=== PATIENT | male | born 1960 | race Caucasian/White ===

== ENCOUNTER 2017-02-12 14:30 | Inpatient (IN) ==
[2017-02-12] MEDS ORDERED: NS 1,000 ML IV ONE (15:03)
[2017-02-12] MEDS ORDERED: NS 1,000 ML ONE (16:12)
[2017-02-12] MEDS: ROCEPHIN 1 GM/NS 1 GM/50 ML IVPB IV SCH (16:26)
[2017-02-12 16:51] LABS: INR 2.97 (0.86-1.15); PROTIME 30.8 Seconds (12.1-15.5)
[2017-02-12 17:06] LABS: ALBUMIN 3.1 g/dL (3.5-5.0); CALCIUM 8.9 mg/dL (8.8-10.2); POTASSIUM 4.4 mmol/L (3.5-5.1); TOTAL BILIRUBIN 2.1 mg/dL (0.20-1.00); TOTAL PROTEIN 5.5 g/dL (6.3-8.3)
--- NOTE | 2017-02-12 17:50 | HISTORY AND PHYSICAL ---
CHIEF COMPLAINT: Extreme weakness and multiple falls recently. HISTORY OF PRESENT ILLNESS: This is one of several [facility] admissions for this 56-year- old, white man with severe cardiomyopathy who has had progressive weakness over the past few days and presented to the office today for evaluation. Blood pressure was low at 80/50. Heart rate was 80 with paced rhythm. He was seen a couple days ago and EKG revealed no acute ST-T changes, also paced rhythm with rate of 80. He has called almost daily with weakness. He has had moderate shortness of breath. O2 saturation in the office was 95%. He is admitted for further evaluation and treatment. PAST MEDICAL HISTORY: His last admission was 12/11/2016 through 12/14/2016 with final diagnoses cardiomyopathy, ischemic, pacemaker, hypertension, left renal mass, chronic back pain, dehydration, and altered mental status. CT scan of his head revealed old strokes, but no acute lesions. PRESENT MEDICATIONS: Allopurinol 300 mg 1 daily, Linzess 145 mg daily, oxycodone 5/325 one q.6 hours p.r.n. pain, Seroquel 50 mg at bedtime p.r.n. sleep, Valtrex 500 mg b.i.d., and warfarin 4 mg at bedtime. ALLERGIES: Dilaudid. REVIEW OF SYSTEMS: Significant for cardiomyopathy with ejection fraction of about 20%. He has been evaluated by cardiologists in [place] who have recommended a heart transplant in the past. He has a left renal mass, which may be renal cell carcinoma. He is currently being followed by Dr. Lezama, urologist. His weight has been stable for the past few months. FAMILY HISTORY: Significant for hypertension and heart disease. SOCIAL HISTORY: He lives alone and has a son who lives in town who checks on him frequently. He denies recent smoking or alcohol usage. He states that he has been taking his medications correctly. PHYSICAL EXAMINATION: VITAL SIGNS: Temperature 98.2 degrees heart rate 80, respirations 14, blood pressure 80/50. GENERAL: Patient is a well-developed, well-nourished, weak white man with general malaise. He has contusions and abrasions over his forehead and scalp, also punctate vasculitis-type rash of his arms and legs. HEENT: Pupils equal, round, and reactive to light. Tympanic membranes without inflammation. Pharynx benign with no erythema or exudate. NECK: Supple with no mass or lymphadenopathy. HEART: Regular in rate and rhythm with no murmur, rub or gallop. LUNGS: Clear with no rales or rhonchi. ABDOMEN: Soft with no mass, tenderness, or organomegaly. EXTREMITIES: No cyanosis, clubbing, or edema. RECTAL AND GENITALIA: Deferred. IMPRESSION: Extreme weakness, hypotension, frequent falls due to unstable gait and hypotension, severe cardiomyopathy, left renal mass. PLAN: Admit for further evaluation and hydration. cc: Saeed Munoz MD
--- NOTE | 2017-02-12 18:24 | Diag Imaging Result Document ---
PROCEDURE NAME: CHEST-2 VIEWS - 02/12/2017 CHEST, 2 VIEWS: COMPARISON: 12/12/2016. FINDINGS: Stable pacemaker. Stable severe cardiomegaly. There is a worsening small to moderate left basilar pleural effusion. Stable ill-defined infiltrates in the lung bases as well. The suggesting mild edema. IMPRESSION: Worsening from prior. Cardiomegaly, pulmonary edema, small pleural effusion.
[2017-02-12] MEDS: NS 1,000 ML IV SCH (18:49)
[2017-02-12] MEDS: NITROGLYCERIN TOP SCH (18:50)
[2017-02-12] MEDS: REMERON PO SCH (20:31)
[2017-02-12] MEDS: VALTREX PO SCH (20:31)
[2017-02-12] MEDS ORDERED: SEROQUEL PO SCH (21:00)
[2017-02-12] MEDS ORDERED: COUMADIN PO SCH (21:00)
--- NOTE | 2017-02-12 21:06 | Diag Imaging Result Document ---
PROCEDURE NAME: HEAD W/O CONTRAST - 02/12/2017 CT OF THE HEAD: A CT dose reduction protocol was used. COMPARISON: 12/22/2016. FINDINGS: There are numerous stable bilateral old cerebral infarctions. There is also stable periventricular white matter chronic microvascular disease. No intracranial mass or hemorrhage. The skull is intact. The sinuses, mastoids, and middle ears are clear. IMPRESSION: Bilateral old cerebral infarctions. No change from prior. MTDD
[2017-02-12] MEDS: PERCOCET-5 PO PRN (22:38)
[2017-02-13] MEDS: NITROGLYCERIN TOP SCH ×4 (00:05→17:40)
[2017-02-13] MEDS: NS 1,000 ML IV SCH ×2 (04:51→17:40)
[2017-02-13] MEDS: LINZESS PO SCH (06:04)
[2017-02-13 07:39] LABS: INR 4.32 (0.86-1.15); PROTIME 40.9 Seconds (12.1-15.5)
[2017-02-13 07:40] LABS: BASO% 0.3 % (0.0-0.8); EOS# 0.03 X1000 (0.0-0.7); EOS% 0.3 % (0.0-10.0); HEMATOCRIT 44.8 % (42.0-52.0); HEMOGLOBIN 14.9 g/dL (14.0-18.0); IMM GRAN# 0.01 X1000 (0.0-0.04); IMM GRAN% 0.1 % (0.0-0.5); LYMPH# 2.08 X1000 (1.2-3.4); MANUAL DIFF NEEDED? YES; MCH 30.9 PG (27-31); MCHC 33.3 g/dL (33-37); MCV 92.9 FL (81-99); MONO# 0.61 X1000 (0.11-0.59); MONO% 6.7 % (1.7-9.3); MPV 10.9 FL (7.4-10.4); NEUT% 69.6 % (42.2-75.2); PLT 171 X1000 (130-400); RBC 4.82 XMIL (4.7-6.1)
[2017-02-13 07:46] LABS: LYMPHS 20 % (21-51); MONO 5 % (1-9)
[2017-02-13] MEDS: VALTREX PO SCH ×2 (08:38→20:51)
[2017-02-13] MEDS: PERCOCET-5 PO PRN ×3 (08:39→20:51)
[2017-02-13] MEDS: ZYLOPRIM PO SCH (08:39)
[2017-02-13] MEDS: LASIX IV SCH ×2 (10:34→20:53)
--- NOTE | 2017-02-13 11:51 | PROGRESS NOTE ---
DATE: 02/13/2017 PRIMARY CARE PHYSICIAN: Dr. Saeed Munoz SUBJECTIVE: Overnight, the patient responded well to the increased fluid resuscitation. The patient states that he is having worsening insomnia and worsening sacral pain, status post a remote fracture to the coccyx. OBJECTIVE: Vital signs are stable. The patient is with oxygen in place, O2 saturation within normal limits. General: An ill-appearing middle-aged male, multiple abrasions and seborrheic keratoses over the head, in mild to moderate pain. HEENT: Clear OP. No erythema. Nares are patent. Pupils are equal, round and reactive to light and accommodation. Extraocular movements were intact. Neck: Supple. Chest: Clear to auscultation anteriorly with telemetry in place. Cardiovascular: Regular rate. There is a 4/6 systolic ejection murmur noted, consistent with artificial heart valve. Abdomen: Protuberant. Bowel sounds are scant. Lower extremities with no cyanosis or clubbing. There is trace lower extremity edema bilaterally. Skin: Poor turgor. Lots of skin breakdown and thinning skin. DIAGNOSTIC DATA: The patient's labs this a.m. show an INR greater than 4 and a BNP greater than 10,000. ASSESSMENT: The patient is a 56-year-old unfortunate male with: 1. Cardiomyopathy. 2. Hypotension. 3. Volume depletion. 4. Supratherapeutic INR. 5. Chronic pain. PLAN: We will continue fluid resuscitation with 1 dose of Lasix to ensure that there is no further volume overload. We will add Decadron p.o. for the chronic pain that is not being remitted with Percocet. We will evaluate with a.m. labs and switch from Seroquel over to temazepam in an effort to improve sleep and also decrease any risk of long QT syndrome. The patient will be followed daily, with discharge upon stabilization. cc: MD Saeed Keene MD
[2017-02-13] MEDS: ROCEPHIN 1 GM/NS 1 GM/50 ML IVPB IV SCH (15:59)
[2017-02-13] MEDS: RESTORIL PO SCH (20:52)
[2017-02-13] MEDS: REMERON PO SCH (20:53)
[2017-02-14] MEDS: NS 1,000 ML IV SCH ×2 (02:17→02:20)
[2017-02-14] MEDS: NITROGLYCERIN TOP SCH ×4 (02:17→18:07)
[2017-02-14] MEDS: LINZESS PO SCH (06:08)
[2017-02-14 06:12] LABS: MANUAL DIFF NEEDED? NO
[2017-02-14 06:35] LABS: BASO% 0.2 % (0.0-0.8); EOS# 0.02 X1000 (0.0-0.7); EOS% 0.2 % (0.0-10.0); HEMATOCRIT 45.9 % (42.0-52.0); HEMOGLOBIN 15.5 g/dL (14.0-18.0); IMM GRAN# 0.02 X1000 (0.0-0.04); IMM GRAN% 0.2 % (0.0-0.5); LYMPH# 2.44 X1000 (1.2-3.4); MCH 31.3 PG (27-31); MCHC 33.8 g/dL (33-37); MCV 92.5 FL (81-99); MONO# 0.59 X1000 (0.11-0.59); MONO% 6.5 % (1.7-9.3); MPV 10.8 FL (7.4-10.4); NEUT% 65.9 % (42.2-75.2); PLT 202 X1000 (130-400); RBC 4.96 XMIL (4.7-6.1)
[2017-02-14 07:03] LABS: ALBUMIN 3.1 g/dL (3.5-5.0); CALCIUM 8.9 mg/dL (8.8-10.2); POTASSIUM 5.6 mmol/L (3.5-5.1); TOTAL BILIRUBIN 1.9 mg/dL (0.20-1.00); TOTAL PROTEIN 5.6 g/dL (6.3-8.3)
[2017-02-14 07:17] LABS: PROTIME 56.2 Seconds (12.1-15.5)
[2017-02-14 07:21] LABS: INR 6.57 (0.86-1.15)
[2017-02-14] MEDS ORDERED: DECADRON PO SCH (09:00)
[2017-02-14] MEDS: VALTREX PO SCH ×2 (09:11→22:29)
[2017-02-14] MEDS: ZYLOPRIM PO SCH (09:11)
[2017-02-14] MEDS: LASIX IV SCH ×2 (09:11→22:29)
[2017-02-14] MEDS ORDERED: VITAMIN K IV ONE (10:43)
[2017-02-14] MEDS ORDERED: NS IV ONE (10:43)
[2017-02-14] MEDS ORDERED: ALBUMIN 25% IV ONE (10:50)
[2017-02-14] MEDS ORDERED: LASIX IV ONE (11:00)
--- NOTE | 2017-02-14 11:24 | PROGRESS NOTE ---
DATE: 02/14/2017 PRIMARY CARE PHYSICIAN: Dr. Saeed Munoz. SUBJECTIVE: Patient with some minor complaints of being awakened overnight. Request made for nursing to decrease the frequency with which they are interacting with the patient to allow for quality sleep. OBJECTIVE: Vital signs: Temperature 97.5 degrees, pulse 83, blood pressure 145/94, O2 saturation 96% on room air. General: Physical exam shows an ill-appearing male, age appearing greater than stated, in no acute distress. Multiple ecchymosis and bruising over the right frontal skull that are well healing. Multiple seborrheic keratosis over the head. HEENT: Shows clear OP. No erythema. Pupils equal, round, react to light and accommodation. Extraocular movements are intact. Neck: Supple. Chest: Clear to auscultation anteriorly. There is a 4/6 systolic ejection murmur noted. Extremities: Lower extremities show no cyanosis, clubbing. Trace lower extremity edema bilaterally. Skin: Poor turgor. Otherwise within normal limits. Warm and dry. Neurologic: Cranial nerves 2 through 12 grossly intact. LABS: Show WBC stable at 9.03 with a hemoglobin and hematocrit of 15 and 45, MCV of 92, platelets up from 171,000 to 202,000. PT/INR continues to increase from 4.32 to 6.57 without Coumadin or anticoagulation. Sodium increasing from 130 to 132 but potassium is 5.6, anion gap of 15, BUN 29, creatinine 1.8 up from 1.3, glucose 106-129. Total bilirubin is continuing to decrease. BNP up almost doubling from 10,000 to 20,000. Total protein 5.6 with albumin 3.1. TSH 5.9 with a free T4 of 1.10 and digoxin level normal. No imaging performed yesterday. ASSESSMENT: This is a 56-year-old, unfortunate male with: 1. Cardiomyopathy. 2. Hypertension. 3. Supratherapeutic INR. 4. Volume depletion intravascularly with congestive heart failure. 5. Chronic pain. PLAN: We are going to increase the Lasix. Switch the fluids from normal saline to Clinimix with 1 dose of albumin to assist with the protein calorie malnutrition. Continue to monitor. We decreased the Seroquel. Will discontinue the steroid dose. Decadron for the chronic pain. Continue the temazepam at night. The patient will get 1 dose of vitamin K to see if there are any changes. We request that further workup regarding the possibility of underlying malignancy be evaluated. cc: MD Saeed Keene MD
[2017-02-14] MEDS ORDERED: FLEET ENEMA PR ONE (12:05)
[2017-02-14] MEDS: PERCOCET-5 PO PRN ×2 (12:16→18:07)
[2017-02-14] MEDS: CLINIMIX E 4.25%-5% SOLUTION 1,000 ML IV SCH (14:00)
--- NOTE | 2017-02-14 14:50 | Diag Imaging Result Document ---
PROCEDURE NAME: ABDOMEN FLAT/UPRIGHT - 02/14/2017 ABDOMEN 2 VIEWS: COMPARISON: 01/16/2016. FINDINGS: Stable cholecystectomy clips. No bowel obstruction or free air. There is a left basilar pleural effusion. IMPRESSION: Left basilar pleural effusion. No acute disease in the abdomen.
[2017-02-14] MEDS: ROCEPHIN 1 GM/NS 1 GM/50 ML IVPB IV SCH (19:13)
[2017-02-14] MEDS: RESTORIL PO SCH (22:28)
[2017-02-14] MEDS: REMERON PO SCH (22:29)
[2017-02-15] MEDS: PERCOCET-5 PO PRN ×3 (00:22→21:28)
[2017-02-15] MEDS: CLINIMIX E 4.25%-5% SOLUTION 1,000 ML IV SCH ×2 (00:22→14:24)
[2017-02-15] MEDS: NITROGLYCERIN TOP SCH ×5 (01:24→18:45)
[2017-02-15] MEDS: LINZESS PO SCH ×2 (06:28)
[2017-02-15] MEDS: SYNTHROID PO SCH (06:28)
[2017-02-15 07:24] LABS: HEMOGLOBIN 15.5 g/dL (14.0-18.0); IMM GRAN# 0.01 X1000 (0.0-0.04); IMM GRAN% 0.1 % (0.0-0.5); LYMPH# 1.16 X1000 (1.2-3.4); LYMPH% 13.9 % (20.5-51.1); MANUAL DIFF NEEDED? YES; MCH 31.3 PG (27-31); MCHC 33.7 g/dL (33-37); MCV 92.9 FL (81-99); MONO# 0.42 X1000 (0.11-0.59); MPV 11.2 FL (7.4-10.4); PLT 211 X1000 (130-400); RBC 4.95 XMIL (4.7-6.1)
[2017-02-15 07:29] LABS: INR 3.89 (0.86-1.15); PROTIME 37.8 Seconds (12.1-15.5)
[2017-02-15 07:56] LABS: CALCIUM 9.4 mg/dL (8.8-10.2); MAGNESIUM 2.2 mg/dL (1.5-2.7); TOTAL BILIRUBIN 3.5 mg/dL (0.20-1.00); TOTAL PROTEIN 5.6 g/dL (6.3-8.3)
[2017-02-15 07:59] LABS: POTASSIUM 6.6 mmol/L (3.5-5.1)
[2017-02-15] MEDS ORDERED: KAYEXALATE PO ONE (08:19)
[2017-02-15] MEDS ORDERED: D50W SYRINGE IV ONE (08:20)
[2017-02-15] MEDS ORDERED: HUMALOG DOSE (PARKWAY) SUBQ ONE (08:22)
--- NOTE | 2017-02-15 09:08 | PROGRESS NOTE ---
DATE: 02/15/2017 VITAL SIGNS: Stable with temperature 98.7, heart rate 80, respiration 18, blood pressure 135/97, O2 saturation 100% on 2.5 L nasal cannula. LABORATORY: White blood count 8300. Hemoglobin at 15.5, hematocrit 46.0. Sodium low at 126, potassium 6.6, BUN 40, creatinine 1.8. Bilirubin 3.5, AST 1005, ALT 507. ProBNP greater than 35,000. Total protein 5.6, albumin 3.0. TSH on 02/14 was elevated at 5.9. OBJECTIVE: Abdomen: Is soft. There is some induration and fluid in the left lateral mid abdomen. Bowel sounds are normal. PLAN: CT of his abdomen. Treat hyperkalemia with IV sugar, insulin and Kayexalate p.o. CT scan of his abdomen will be done to re-evaluate the left kidney mass and evaluate the edema of the left abdominal wall. Physical therapy will be asked to ambulate the patient t.i.d. as tolerated. cc: Saeed Munoz MD
[2017-02-15 10:07] LABS: LYMPHS 15 % (21-51); MONO 3 % (1-9)
[2017-02-15] MEDS: VALTREX PO SCH ×2 (10:13→21:28)
[2017-02-15] MEDS: LASIX IV SCH ×2 (10:13→21:27)
[2017-02-15] MEDS: ZYLOPRIM PO SCH (10:14)
--- NOTE | 2017-02-15 12:16 | Diag Imaging Result Document ---
PROCEDURE NAME: CT ABD WITH IV CONTRAST ONLY - 02/15/2017 CT ABDOMEN WITH IV CONTRAST ONLY: Exam performed with intravenous contrast only per request of the referring provider. Dr. Munoz approved intravenous contrast administration. COMPARISON: Compared with the without contrast CT renal stone search from 12/01. FINDINGS: Images of the base of the thorax show cardiomegaly and bilateral pleural effusions. There is a 2.5 x 3.1 cm lesion which arises at the posterior [id number] left kidney. There is a small calcification in the lesion. The lesion generally measures about 20 Hounsfield units on arterial phase images and 38-40 Hounsfield units on venous phase images. There is an apparent 0.6 cm enhancing nodule in the superior portion of the lesion when correlated with the previous exam, although there are no without contrast images on this exam. The nodular area is more conspicuous on the arterial phase images and may represent a prominent vascular structure. The lesion is of nonspecific etiology but cannot be confirmed as a simple cyst. There are additional low-density lesions which are suggestive of cysts in the bilateral kidneys. The largest of these apparent cyst is located at the mid right kidney and measures 1.8 cm. There is no hydronephrosis. The liver is somewhat prominent in size but shows no discrete focal lesions. There is a small low- density area at the lateral spleen which appears grossly stable and may represent some sort of scar, such as from old injury. The adrenal glands and pancreas show no acute changes. There are nonspecific small retroperitoneal lymph nodes. There are no substantially enlarged lymph nodes identified. There is no evidence of bowel obstruction. There is no abscess identified. There is no free air. There is minimal free fluid. IMPRESSION: 1. Nonspecific 2.5 x 3.1 cm lesion arising at posterior [id number] left kidney. Renal cell carcinoma cannot be excluded. There are bilateral renal cysts noted. 2. Hepatomegaly. No focal liver lesion identified. Small splenic lesion which may represent scar, such as from old injury. 3. Cardiomegaly and bilateral pleural effusions. [facility]
[2017-02-15] MEDS: ROCEPHIN 1 GM/NS 1 GM/50 ML IVPB IV SCH (14:24)
[2017-02-15] MEDS: ZOFRAN IV PRN (16:24)
[2017-02-15] MEDS ORDERED: COZAAR PO ONE (18:09)
[2017-02-15] MEDS ORDERED: MILK OF MAGNESIA PO ONE (18:16)
[2017-02-15] MEDS ORDERED: DULCOLAX PO ONE (18:17)
[2017-02-15] MEDS: RESTORIL PO SCH (21:27)
[2017-02-15] MEDS: COREG PO SCH (21:28)
[2017-02-15] MEDS: REMERON PO SCH (21:28)
[2017-02-16] MEDS: CLINIMIX E 4.25%-5% SOLUTION 1,000 ML IV SCH ×3 (01:05→16:30)
[2017-02-16] MEDS: NITROGLYCERIN TOP SCH ×4 (01:06→18:08)
[2017-02-16] MEDS: SYNTHROID PO SCH (06:33)
[2017-02-16] MEDS: LINZESS PO SCH (06:33)
[2017-02-16 06:50] LABS: BASO% 0.1 % (0.0-0.8); HEMATOCRIT 47.2 % (42.0-52.0); HEMOGLOBIN 15.8 g/dL (14.0-18.0); IMM GRAN# 0.01 X1000 (0.0-0.04); IMM GRAN% 0.1 % (0.0-0.5); LYMPH# 1.19 X1000 (1.2-3.4); LYMPH% 11.1 % (20.5-51.1); MANUAL DIFF NEEDED? NO; MCH 31.2 PG (27-31); MCHC 33.5 g/dL (33-37); MCV 93.3 FL (81-99); MONO# 0.69 X1000 (0.11-0.59); MONO% 6.4 % (1.7-9.3); MPV 10.8 FL (7.4-10.4); NEUT% 82.3 % (42.2-75.2); PLT 203 X1000 (130-400); RBC 5.06 XMIL (4.7-6.1)
[2017-02-16 07:24] LABS: CALCIUM 9.1 mg/dL (8.8-10.2); POTASSIUM 5.5 mmol/L (3.5-5.1)
[2017-02-16] MEDS: ZYLOPRIM PO SCH (08:14)
[2017-02-16] MEDS: ALDACTONE PO SCH (08:14)
[2017-02-16] MEDS: LASIX PO SCH (08:14)
[2017-02-16] MEDS: COREG PO SCH ×2 (08:14→20:56)
[2017-02-16] MEDS: COZAAR PO SCH (08:14)
[2017-02-16] MEDS: VALTREX PO SCH ×2 (08:14→20:56)
[2017-02-16 08:18] LABS: INR 2.42 (0.86-1.15); PROTIME 26.4 Seconds (12.1-15.5)
--- NOTE | 2017-02-16 08:25 | PROGRESS NOTE ---
DATE: 02/16/2017 VITAL SIGNS: Temperature 97.2 degrees, heart rate 81, respiration 18, blood pressure 140/98, O2 saturation on nasal oxygen 99%. LABORATORY: Hemoglobin 15.8, hematocrit 47.2, white blood count 10,700 with 82% neutrophils. Sodium 130, potassium 5.5. BUN 55, creatinine 2.2, glucose 143. PLAN: Decrease Lasix and change to 40 mg p.o. daily. Physical therapy will continue to assist with ambulation. Rehab is planned for after discharge. Blood pressure medication was added last night with his blood pressure elevating yesterday afternoon to 178/100. cc: Saeed Munoz MD
[2017-02-16] MEDS: ZOFRAN IV PRN (12:44)
[2017-02-16] MEDS: ROCEPHIN 1 GM/NS 1 GM/50 ML IVPB IV SCH (14:44)
[2017-02-16] MEDS: REMERON PO SCH (20:56)
[2017-02-16] MEDS: RESTORIL PO SCH (20:56)
[2017-02-17] MEDS: PERCOCET-5 PO PRN (00:21)
[2017-02-17] MEDS: NITROGLYCERIN TOP SCH ×4 (00:23→17:49)
[2017-02-17] MEDS: DILAUDID IV PRN ×2 (04:45→12:26)
[2017-02-17] MEDS: CLINIMIX E 4.25%-5% SOLUTION 1,000 ML IV SCH (06:13)
[2017-02-17] MEDS: LINZESS PO SCH (06:13)
[2017-02-17] MEDS: SYNTHROID PO SCH (06:13)
--- NOTE | 2017-02-17 06:49 | Diag Imaging Result Document ---
PROCEDURE NAME: CHEST-2 VIEWS - 02/17/2017 FRONTAL AND LATERAL CHEST, TWO VIEWS: COMPARISON: Compared to 02/12/2017. FINDINGS: The patient has a left-sided pacemaker. The heart is enlarged. The lungs are well expanded. There infiltrates inferiorly and there is a small left effusion. The overall appearance is quiet similar to that of the prior exam. Mild central vascular prominence. IMPRESSION: No interval improvement.
--- NOTE | 2017-02-17 07:43 | PROGRESS NOTE ---
DATE: 02/17/2017 VITAL SIGNS: Temperature 97.3 degrees, heart rate 81, respirations 20, blood pressure 148/106, O2 saturation on 2 liters nasal oxygen 100%. DIAGNOSTIC DATA: Chest x-ray this morning was essentially unchanged from prior x-ray with persistent mild left pleural effusion at the base. PHYSICAL EXAMINATION: Somnolent after Dilaudid IV for lower back and tailbone pain. He started to have increasing low back and coccyx pain early this morning. Percocet was not helping adequately. He was given 1 mg IV Dilaudid at that time and ordered q.3 hours p.r.n. pain. Lungs reveal mild decrease in breath sounds at the left base, otherwise clear. PLAN: Continue physical therapy and rehab at discharge. Lab will be rechecked tomorrow morning. cc: Saeed Munoz MD
[2017-02-17] MEDS: LASIX PO SCH (09:31)
[2017-02-17] MEDS: COREG PO SCH ×2 (09:31→20:39)
[2017-02-17] MEDS: COZAAR PO SCH (09:31)
[2017-02-17] MEDS: VALTREX PO SCH ×2 (09:32→20:39)
[2017-02-17] MEDS: ALDACTONE PO SCH (09:32)
[2017-02-17] MEDS: ZYLOPRIM PO SCH (09:32)
[2017-02-17 10:32] LABS: ALBUMIN 3.2 g/dL (3.5-5.0); CALCIUM 9.1 mg/dL (8.8-10.2); POTASSIUM 5.8 mmol/L (3.5-5.1); TOTAL BILIRUBIN 4.2 mg/dL (0.20-1.00); TOTAL PROTEIN 5.5 g/dL (6.3-8.3)
[2017-02-17] MEDS: ROCEPHIN 1 GM/NS 1 GM/50 ML IVPB IV SCH (15:05)
[2017-02-17] MEDS: NS 1,000 ML IV SCH (17:49)
--- NOTE | 2017-02-17 20:30 | CONSULTATION ---
DATE OF CONSULTATION: 02/17/2017 IMPRESSION: 1. Acute on chronic systolic heart failure, biventricular. 2. Severe cardiomyopathy with left ejection fraction reportedly 20%. Details not available. 3. Should be considerable memory problems suggesting some degree of dementia. 4. Recurrent cerebrovascular accidents. 5. Left renal mass. 6. Parkinson's-like syndrome apparent. 7. Chronic kidney disease. 8. Hypertension. 9. Type 2 diabetes in the past, which improved. Apparently his renal function deteriorated. RECOMMENDATIONS: 1. Diurese with intravenous Lasix. 2. Echocardiography/Doppler study. 3. Try and obtain previous Cardiology records. 4. Conservative overall cardiovascular plans in light of patient's clinical decline from a neurologic standpoint and with left renal mass. 5. Hydralazine in order to bring blood pressure down in the setting of severe cardiomyopathy and chronic kidney disease. Alternatively I would consider use of amlodipine. HISTORY: This 56-year-old, unfortunate white male, with past history of severe cardiomyopathy, previous implantable defibrillator, hypertension, previous diabetes mellitus, chronic kidney disease, recurrent cerebrovascular accident and poor memory was admitted 5 days ago with weakness and low blood pressure. He was felt to be volume depleted and he was given intravenous volume. His chest x-ray was abnormal. He has failed to improve with respect to his weakness. He intermittently has required supplemental oxygen and is currently on oxygen per nasal cannula at 3 L/minute. He admits he has a very poor memory and does not recall much in the way of details regarding his clinical presentation. He has no recollection as to why has a weak heart. There has been no chest pain. PAST MEDICAL HISTORY: 1. Severe cardiomyopathy. Details not available. 2. Status post implantable defibrillator. 3. Hypertension. 4. Chronic kidney disease. 5. Poor memory, possible dementia. 6. Recurrent cerebrovascular accidents. 7. Previous diabetes mellitus, which improved with sikhism of renal dysfunction. 8. Left renal mass. 9. Chronic anticoagulation. ALLERGIC: Allergic or intolerant to Dilaudid. MEDICATIONS: As listed. SOCIAL HISTORY: He relates that he lives in a mobile home with or near his son. He is somewhat sketchy regarding this. He does not smoke or use alcohol. FAMILY HISTORY: Positive for hypertension and heart disease of unspecified nature. REVIEW OF SYSTEMS: Pulmonary: Negative for cough. He has had some dyspnea. Gastrointestinal: Negative. Constitutional: Noteworthy for weakness and fatigue. Remainder of review of systems negative/noncontributory with 14 total systems reviewed. PHYSICAL EXAMINATION: General: This is a chronically ill-appearing, middle-aged male, in no distress. Vital signs: Blood pressure 164/101, heart rate 80 and regular. Oxygen saturation 95% on 3 L per nasal cannula. HEENT: Noteworthy for somewhat masked facies. Mucous membranes are moist. Neck: Supple. Jugular distention is evident consistent with elevated central venous pressure. Chest: Auscultation of the chest reveals a few bibasilar crackles. Cardiac: Examination reveals somewhat distant heart sounds and a regular rate and rhythm without appreciable murmur or gallop. Abdomen: Soft, nontender. Bowel sounds audible. Extremities: Demonstrate mild edema. He also has excoriations on the extensor surface of his right forearm, extensor surface of his right hand as well as on the extensor surface of his left hand. Neurologic: Reveals him to be alert. He is oriented to person, place, month, but not to the year. Speech is fluent. He moves all 4 extremities equally well. There is a resting tremor most noted in the left upper extremity and slight in the right upper extremity. DIAGNOSTICS: Electrocardiogram demonstrates paced rhythm. cc: MD Saeed Cowart MD
[2017-02-17] MEDS: REMERON PO SCH (20:39)
[2017-02-17] MEDS: RESTORIL PO SCH (20:39)
[2017-02-17] MEDS: LASIX IV SCH (20:39)
[2017-02-18] MEDS: NS 1,000 ML IV SCH ×3 (02:00→17:24)
[2017-02-18] MEDS: PERCOCET-10 PO PRN ×2 (06:24→22:47)
[2017-02-18] MEDS: LINZESS PO SCH (06:24)
[2017-02-18] MEDS: SYNTHROID PO SCH (06:25)
[2017-02-18 07:25] LABS: HEMATOCRIT 46.5 % (42.0-52.0); HEMOGLOBIN 16.1 g/dL (14.0-18.0); IMM GRAN# 0.02 X1000 (0.0-0.04); IMM GRAN% 0.2 % (0.0-0.5); LYMPH% 9.6 % (20.5-51.1); MANUAL DIFF NEEDED? YES; MCH 31.2 PG (27-31); MCHC 34.6 g/dL (33-37); MCV 90.1 FL (81-99); MONO# 0.88 X1000 (0.11-0.59); MPV 11.7 FL (7.4-10.4); NEUT% 83.2 % (42.2-75.2); PLT 173 X1000 (130-400); RBC 5.16 XMIL (4.7-6.1)
[2017-02-18 08:06] LABS: CALCIUM 9.1 mg/dL (8.8-10.2); POTASSIUM 5.1 mmol/L (3.5-5.1)
[2017-02-18 08:08] LABS: LYMPHS 4 % (21-51); MONO 4 % (1-9); NRBC 2 % (0-0)
--- NOTE | 2017-02-18 08:57 | PROGRESS NOTE ---
DATE: 02/18/2017 SUBJECTIVE: He is feeling a little bit better this morning with less shortness of breath. VITAL SIGNS: Temperature 97.4 degrees, heart rate 83, respirations 18, blood pressure 143/93, O2 saturation 97% on 2 liters nasal oxygen. LABORATORY DATA: Sodium 126, potassium 5.1, BUN 72, creatinine 1.9. Bilirubin 4.2, AST 270, ALT 417, alkaline phosphatase 139, total protein 5.5, albumin 3.2. PLAN: The patient is getting up and walking small distances with Physical Therapy assistance. Appetite is fair. Back pain is improved. Because of renal insufficiency and abnormal liver function tests, echocardiogram is ordered and Cardiology consultation. The patient will probably need rehab at discharge. cc: Saeed Munoz MD
[2017-02-18] MEDS: COZAAR PO SCH (09:37)
[2017-02-18] MEDS: COREG PO SCH ×2 (09:37→21:16)
[2017-02-18] MEDS: APRESOLINE PO SCH ×3 (09:37→17:24)
[2017-02-18] MEDS: ZYLOPRIM PO SCH (09:37)
[2017-02-18] MEDS: ISORDIL PO SCH ×3 (09:37→17:24)
[2017-02-18] MEDS: VALTREX PO SCH ×2 (09:37→21:17)
[2017-02-18] MEDS: LASIX IV SCH ×2 (09:37→21:17)
[2017-02-18] MEDS: ROCEPHIN 1 GM/NS 1 GM/50 ML IVPB IV SCH (17:24)
--- NOTE | 2017-02-18 18:06 | PROGRESS NOTE ---
DATE: 02/18/2017 CARDIOLOGY FOLLOWUP NOTE: SUBJECTIVE: Patient relates feeling better. He denies dyspnea on supplemental oxygen per nasal cannula at 2 L/minute. There has been no chest pain. OBJECTIVE: Vital Signs: Blood pressure 121/79, heart rate 78 and regular. Neck: Jugular venous pressure appears to be normal on inspection of neck veins. Chest: Auscultation of the chest reveals a few crackles in the left base posteriorly and diminished breath sounds in the right base. Cardiac Exam: Reveals a regular rate and rhythm without appreciable murmur or gallop. There is no evidence of peripheral edema. Echocardiography report pending. LAB DATA: BUN 72, creatinine 1.9, sodium 126. IMPRESSION: 1. Acute on chronic systolic heart failure, biventricular with predominantly right-sided heart failure currently. 2. Severe cardiomyopathy left ventricular ejection fraction of 20%. 3. Considerable memory problems suggesting some degree of dementia. 4. Recurrent cerebrovascular accidents. 5. Left renal mass. 6. Chronic kidney disease with significant cardiorenal component. 7. Hypertension. 8. Type 2 diabetes mellitus. 9. Possible Parkinson-like syndrome potentially related to some of his medications. Seroquel recently discontinued and patient actually appears a little better in regards to this. RECOMMENDATIONS: 1. Continue diuresis. 2. Follow up echocardiography. 3. Fluid restrict given hyponatremia. 4. Conservative overall cardiovascular plans in light of patient's condition. cc: MD Saeed Cowart MD
--- NOTE | 2017-02-18 19:05 | ECHO REPORT ---
ORDER DATE: 02/17/2017 INTERPRETING PHYSICIAN: Dr. Adam REQUESTING PHYSICIAN: CLINICAL INDICATIONS: A 56-year-old male with cardiomyopathy, congestive heart failure. M-MODE MEASUREMENTS: Right ventricle: 4.3 cm. Left ventricle end diastole: 7.6 cm. Left ventricle end systole: 7.2 cm. Posterior wall: 1.1 cm. Interventricular septum: 1.1 cm. Left atrium: 5.2 cm. Aortic root: 4.8 cm. SUMMARY OF 2-DIMENSIONAL IMAGING: The left ventricular chamber is markedly dilated. The global left ventricular systolic function is estimated by computer tracing to be in the range of 20-25%. The impairment is global. The right atrium and left atrium are markedly dilated also. The right ventricle is significantly enlarged. There are pacemaker leads within the right-sided chambers. There is some "tenting" of the mitral valve with apical displacement of it. Color flow mapping shows a moderately severe degree of mitral regurgitation. Pulse wave Doppler of mitral inflow shows a pseudo normal pattern with a tall E wave and a short A wave. Tissue Doppler of septal and lateral mitral annulus averages 8 cm per second. The E/E prime ratio is elevated. The aortic valve has 3 cusps. They open normally. Color flow mapping indicates a mild degree of regurgitation. The tricuspid valve shows a moderately severe degree of regurgitation. The inferior vena cava is markedly dilated. The pulmonary pressure is estimated to be at least 77 mmHg. The pulmonic valve shows a mild degree of regurgitation. There is a left pleural effusion noted. I do not see evidence of definite pericardial effusion. IMPRESSION: In summary, this study shows: 1. Markedly dilated left ventricle with severely impaired systolic function. Ejection fraction estimated at 20-25%. 2. Moderately severe degree of mitral and tricuspid regurgitation. 3. Patient appears to be in a low cardiac output state. The LVOT VTI is 11.3 cm. The M mode pattern of the aortic valve opening shows a classical pattern for low cardiac output. 4. There is elevation of left atrial pressure based on the elevation of the E/E prime pressure. 5. The pulmonary systolic pressure is at least 77 mmHg. There is marked dilatation of the inferior vena cava, indicating significant right atrial hypertension. Clinical correlation recommended. This study is consistent with advanced decompensated nonischemic cardiomyopathy. cc: MD Tereso Godoy MD Robert Allen MD
[2017-02-18] MEDS: RESTORIL PO SCH (21:17)
[2017-02-18] MEDS: REMERON PO SCH (21:17)
[2017-02-18] MEDS ORDERED: NS 1,000 ML IV SCH (22:03)
[2017-02-19] MEDS: LASIX IV SCH ×2 (04:12→08:20)
[2017-02-19] MEDS: SYNTHROID PO SCH (06:14)
[2017-02-19] MEDS: LINZESS PO SCH (06:14)
[2017-02-19 07:25] LABS: CALCIUM 9.1 mg/dL (8.8-10.2); POTASSIUM 4.3 mmol/L (3.5-5.1); TOTAL BILIRUBIN 3.4 mg/dL (0.20-1.00); TOTAL PROTEIN 5.1 g/dL (6.3-8.3)
[2017-02-19] MEDS: COREG PO SCH (08:20)
[2017-02-19] MEDS: ISORDIL PO SCH ×2 (08:20→13:14)
[2017-02-19] MEDS: VALTREX PO SCH (08:20)
[2017-02-19] MEDS ORDERED: ZYLOPRIM PO SCH (09:00)
[2017-02-19 15:46] VITALS: BP 109/74
--- NOTE | 2017-02-19 17:58 | DISCHARGE SUMMARY ---
ADMISSION DATE: 02/12/2017 DISCHARGE DATE: 02/19/2017 FINAL DIAGNOSES: Acute and chronic systolic congestive heart failure, diastolic congestive heart failure, cardiomyopathy, pulmonary edema, hypotension, frequent falls due to unstable gait and hypotension, persistent left renal mass, possible renal cell carcinoma, cerebral vascular disease, coronary artery disease, acute renal failure. DISPOSITION: Home with home health and physical therapy. DISCHARGE MEDICATIONS: Usual medication at home except lisinopril is discontinued. Lasix was increased to 40 mg p.o. b.i.d. He was placed on 2 liters nasal oxygen chronically, carvedilol 6.25 mg b.i.d., and isosorbide dinitrate 10 mg t.i.d. CONSULTATION: Dr. Franco, Mailing Machine Helper. HISTORY: This is one of several [facility] admissions for this 56-year-old, white man with cardiomyopathy and chronic weakness who presented with weakness for several days and blood pressure 80/50. He was admitted for hydration, and further evaluation. Head CT revealed no acute lesions, but old cerebral infarcts. Abdominal CT revealed a 2.5 x 3.1 cm lesion in the posterior mid to upper left kidney. There was hepatomegaly, but no focal lesion. Cardiomegaly and bilateral pleural effusions were noted. Echocardiogram revealed estimated ejection fraction 20- 25%. There was moderate degree of mitral and tricuspid regurgitation. Pulmonary systolic pressure was at least 77 mmHg. There was marked dilatation of the inferior vena cava indicating significant right atrial hypertension. INITIAL LABORATORY: Sodium 126, potassium 6.6, BUN 40, creatinine 1.8, AST 1005, ALT 507, alkaline phosphatase 114, total protein 5.6, albumin 3.0, proBNP greater than 35,000. There was improvement with hydration, but when chest x-ray revealed pleural effusion the fluids were decreased and Lasix was increased. He had subsequent increase of BUN and creatinine to 72 and 1.9. HOSPITAL COURSE: Blood pressure became elevated because of increase in low back pain. Percocet was not adequately controlling his pain and he was given 1 mg intravenous Dilaudid. He had too much somnolence with this and was changed back to Percocet. He was seen by Dr. Franco who added hydralazine. His blood pressure improved after discontinuation of hydralazine and was 109/74 this afternoon DISPOSITION: Discussion was made with the patient concerning need for rehab, but he refused to ago. A bed had been obtained at [facility]. He was insistent on going home. It is felt that the prognosis is poor and that he may need rehab despite going home. He will be contacted over the next few days to monitor progress and assisted by home health. cc: Saeed Munoz MD
--- NOTE | 2017-02-19 18:23 | PROGRESS NOTE ---
DATE: 02/19/2017 SUBJECTIVE: Patient denies shortness of breath on room air. He is insistent upon going home. There is no chest pain. OBJECTIVE: Vital Signs: Blood pressure 109/74, heart rate 79 and regular. Neck: Jugular venous pressure appears normal on inspection of neck veins. Chest: Clear to auscultation. Cardiac Examination: Regular rate and rhythm without appreciable murmur or gallop. Extremities: Examination of the extremities demonstrates 2+ to 3+ pretibial edema. LAB DATA: Noteworthy for BUN 69, creatinine 1.9, sodium 133, AST 211, ALT 337, albumin 3.0. IMPRESSION: 1. Acute on chronic systolic heart failure which is biventricular but predominantly right-sided. 2. Severe cardiomyopathy with markedly dilated left ventricle by echocardiography, ejection fraction 20%. There was moderate to severe mitral and tricuspid regurgitation, and moderate to severe pulmonary hypertension with marked dilatation of the inferior vena cava suggesting elevated right atrial pressure. Study was performed 02/17/2017. 3. Abnormal transaminases. This is actually improving but is a manifestation of hepatic congestion that is improving. RECOMMENDATIONS: It would appear best for patient to remain hospitalized to receive further inpatient treatment of his acute on chronic systolic heart failure with intravenous Lasix. He would appear to have a high likelihood of repeat admission in the near future and potential adverse consequences of further deterioration of congestive heart failure. I have discussed this with the patient at length and he is adamant on going home. Therefore, I suggested he pursue prompt followup with his regular law clerk within a week of going home. cc: MD Saeed Cowart MD
[2017-02-19] MEDS ORDERED: LASIX PO SCH (21:00)
== END 2017-02-19 18:50 ==
LOC: P.DIRADM 14:30 → P.MEDSURG 15:11
PROVIDERS: ADMIT Family Medicine; ATTEND Family Medicine

== ENCOUNTER 2019-01-11 21:34 | Inpatient (IN) ==
[2019-01-11] MEDS ORDERED: NARCAN IV ONE (21:46)
--- NOTE | 2019-01-11 22:07 | PROVIDER DOCUMENTATION ---
HPI-Neurological Disorder - General Chief Complaint: Altered Mental Status Stated Complaint: AMS Time Seen by Provider: 01/11/19 21:38 Source: family (Patient is a 58 year old white male , S/P brain surgery at [facility] 2 mos ago and h/o CHF, DM,COPD,CVA,insomnia, and chronic back pain who presents by EMS with altered mentation and reported anorexia for past 2 days. EMS administered 500cc NS bolus prior to arrival. Family reports that patient took sleeping pill and oxycodone this evening. Denies fever, chest pain.), EMS Allergies/Adverse Reactions: Patient Allergies Allergy/AdvReac Type Severity Reaction Status Date / Time hydromorphone HCl * AdvReac Unknown Verified 06/17/18 12:19 [From Dilfunmilayoid] Home Medications: Home Medication List Medication Instructions Recorded Confirmed Last Taken Type Allopurinol [Zyloprim] 300 mg PO DAILY #0 tablet 12/14/16 06/17/18 06/21/17 09:00 Rx Furosemide [Lasix] 40 mg PO BID #60 tablet 02/19/17 06/17/18 06/21/17 09:00 Rx Carvedilol [Coreg] 3.125 mg PO Q12HR 06/18/17 06/17/18 06/21/17 09:00 History Isosorbide Dinitrate [Isordil] 30 mg PO DAILY 06/18/17 06/17/18 06/21/17 09:00 History Levothyroxine [Synthroid] 125 microgm PO DAILY 06/18/17 02/03/18 06/21/17 09:00 History Mirtazapine 30 mg PO HS 06/18/17 02/03/18 06/21/17 21:00 History Potassium Chloride 20 meq PO DAILY 06/18/17 06/17/18 06/21/17 09:00 History Omeprazole 40 mg PO DAILY #30 capsule. 06/22/17 02/03/18 Unknown Rx Warfarin [Coumadin] 5 mg PO QHS #0 06/25/17 02/03/18 1 Week Ago Rx ~06/11/17 Nystatin 100,000 unit PO TID #300 ml 07/11/17 02/03/18 Unknown Rx Ondansetron Odt [Zofran Odt] 8 mg PO Q8H PRN PRN #20 tablet 07/11/17 02/03/18 Unknown Rx Oxycodone HCl/Acetaminophen 1 tab PO 4XDAY PRN PRN 02/03/18 06/17/18 Unknown History [Oxycodone-Acetaminophen 10-325] Tizanidine HCl 1 tab PO TID PRN 02/03/18 06/17/18 Unknown History Hydralazine [Apresoline] 10 mg PO BID 06/17/18 06/17/18 Unknown History Valacyclovir [Valtrex] 500 mg PO BID 06/17/18 06/17/18 Unknown History - History of Present Illness-Neuro Nature of Presenting Problem: Patient is a 58 year old white male , S/P brain surgery at [facility] 2 mos ago and h/o CHF, DM,COPD,CVA,insomnia, and chronic back pain who presents by EMS with altered mentation and reported anorexia,nausea,vomiting,diarrhea for past 2 days. EMS administered 500cc NS bolus prior to arrival. Family reports that patient took sleeping pill and oxycodone this evening. Denies fever, chest pain. Onset/Duration: reports: gradual Timing: reports: still present Character of Altered Mental Status: reports: decreased responsiveness Cognitive Baseline: other (slow mentation, drowsy) Associated Symptoms: reports: vomiting Similar Symptoms Previously?: Yes Recently seen or treated by another doctor?: Yes ([facility]) Review of Systems - Adult - REVIEW OF SYSTEMS - ADULT ROS:: ROS per family Constitutional: denies: fever Eyes: reports: no symptoms reported Ears, Nose, Mouth & Throat: reports: no symptoms reported Cardiovascular: denies: chest pain Respiratory: denies: shortness of breath Gastrointestinal: reports: vomiting. denies: abdominal pain, diarrhea Genitourinary: reports: no symptoms reported Musculoskeletal: reports: no symptoms reported Integumentary: denies: rash Neurological: reports: see HPI. denies: headache/migraines, seizure Past History - Adult - PAST MEDICAL HISTORY-ADULT Review of Records: reports: Old Records Reviewed, Nursing Assessment Review, Social history reviewed & non-contributory. Major Childhood Illnesses: reports: denies history Cardiovascular: reports: arrhythmia, CHF, HTN, pacemaker, other (cardiomyopathy; stroke with defib placement in 2011) Respiratory: reports: COPD Gastrointestinal: reports: denies history Obstetrical/Gynecological: reports: denies history Genitourinary: reports: denies history Musculoskeletal: reports: chronic pain Neurological: reports: CVA Endocrine/Immune: reports: Diabetes Other Conditions: reports: denies history - PRIOR SURGERIES/PROCEDURES Surgical/Procedure History: reports: cholecystectomy, pacemaker, tonsillectomy, other (ICD) - PRIOR HOSPITALIZATIONS Prior Hospitalizations: reports: none - IMMUNIZATION STATUS Childhood Immunizations: See Nurse Assessment Flu Vaccine: See Nurse Assessment - FAMILY HISTORY Family History: reviewed, not pertinent Physical Exam- Neurological - Physical Exam-Neuro Initial Vital Signs Reviewed: No General Appearance: other (lethargic, responds slowly to voice, moves all extremities, decreased skin turgor, emaciated,dry mucous membranes) Eye Exam: bilateral eye: PERRL HENMT: other (clear) Head Injury: other (open surgical wound over top of scalp with dressing in place) Neck: supple Respiratory: lungs clear, decreased breath sounds Cardiovascular: regular rate, rhythm Abdominal Exam: non tender, soft Peripheral Pulses: radial (R): 1+, radial (L): 1+ Extremity: non-tender assistive technology specialist Exam: other (nonfocal, uncooperative to exam) Neurologic: other (nonfocal) - Glascow Coma Scale Best Eye Response: (4) open spontaneously Best Verbal Response: (4) confused conversation Best Motor Response: (6) obeys commands Total Glascow Score: 14 Progress - PLAN OF CARE/RESULTS Progress/Plan/Lab Results: Vital Signs - 8 hr 01/11/19 23:26 01/12/19 00:37 01/12/19 01:59 Pulse Rate 83 81 64 Respiratory Rate 18 16 18 Blood Pressure 80/66 83/61 92/56 O2 Sat by Pulse Oximetry 97 97 98 Laboratory Results - last 24 hr 01/11/19 01/11/19 01/11/19 22:12 22:15 22:15 WBC 9.27 RBC 3.92 L Hgb 11.0 L Hct 34.5 L MCV 88.0 MCH 28.1 MCHC 31.9 L RDW Std Deviation 16.7 H Plt Count 199 MPV 10.7 H Immature Gran % (Auto) 0.1 Neut % (Auto) 63.0 Lymph % (Auto) 12.7 L [place] % (Auto) 7.4 Eos % (Auto) 16.7 H Baso % (Auto) 0.1 Immature Gran # (Auto) 0.01 Neut # (Auto) 5.83 Lymph # (Auto) 1.18 L [place] # (Auto) 0.69 H Eos # (Auto) 1.55 H Baso # (Auto) 0.01 Specimen Type ARTERIAL Sample Site R RADIAL pH 7.48 H pCO2 33 L pO2 107 H HCO3 26.0 Base Excess 1.4 Oxyhemoglobin 96.0 ABG O2 Sat (Calculated) 15.1 ABG O2 Saturation 99.5 ABG Carboxyhemoglobin 2.20 ABG Methemoglobin 1.3 Alexander Test YES A-a O2 Difference 1.0 Total Hemoglobin 11.1 L Lactate 1.50 Blood Gas Modality ROOM AIR FiO2 % 21.0 Sodium Potassium Chloride Carbon Dioxide Anion Gap BUN Creatinine Estimated GFR/1.73 m2 BUN/Creatinine Ratio Glucose POC Glucose Calculated Osmolality Calcium Magnesium 2.1 Total Bilirubin AST ALT Alkaline Phosphatase Troponin T Total Protein Albumin Globulin Albumin/Globulin Ratio Urine Source Urine Color Urine Clarity Urine pH Ur Specific [place] Urine Protein Urine Ketones Urine Blood Urine Nitrite Urine Bilirubin Urine Urobilinogen Urine Microscopic RBC Urine WBC Urine Microscopic WBC Urine Glucose Urine Opiates Screen Ur Oxycodone Screen Urine Methadone Screen U Propoxyphene Qual Ur Barbituates Screen Ur Tricyclics Screen Ur Phencyclidine Scrn Ur Amphetamines Screen U Methamphetamines Scrn U Benzodiazepines Scrn Urine Cocaine Screen U Cannabinoids Screen 01/11/19 01/11/19 01/11/19 22:15 22:15 22:33 WBC RBC Hgb Hct MCV MCH MCHC RDW Std Deviation Plt Count MPV Immature Gran % (Auto) Neut % (Auto) Lymph % (Auto) [place] % (Auto) Eos % (Auto) Baso % (Auto) Immature Gran # (Auto) Neut # (Auto) Lymph # (Auto) [place] # (Auto) Eos # (Auto) Baso # (Auto) Specimen Type Sample Site pH pCO2 pO2 HCO3 Base Excess Oxyhemoglobin ABG O2 Sat (Calculated) ABG O2 Saturation ABG Carboxyhemoglobin ABG Methemoglobin Alexander Test A-a O2 Difference Total Hemoglobin Lactate Blood Gas Modality FiO2 % Sodium 136 Potassium 3.2 L Chloride 97 L Carbon Dioxide 26 Anion Gap 14 BUN 48 H Creatinine 3.4 H Estimated GFR/1.73 m2 19 BUN/Creatinine Ratio 14 Glucose 179 H POC Glucose 150 H Calculated Osmolality 289 Calcium 8.6 L Magnesium Total Bilirubin 0.30 AST 10 ALT < 5 L Alkaline Phosphatase 111 Troponin T 0.087 Total Protein 7.2 Albumin 4.0 Globulin 3.0 Albumin/Globulin Ratio 1.0 Urine Source Urine Color Urine Clarity Urine pH Ur Specific [place] Urine Protein Urine Ketones Urine Blood Urine Nitrite Urine Bilirubin Urine Urobilinogen Urine Microscopic RBC Urine WBC Urine Microscopic WBC Urine Glucose Urine Opiates Screen Ur Oxycodone Screen Urine Methadone Screen U Propoxyphene Qual Ur Barbituates Screen Ur Tricyclics Screen Ur Phencyclidine Scrn Ur Amphetamines Screen U Methamphetamines Scrn U Benzodiazepines Scrn Urine Cocaine Screen U Cannabinoids Screen 01/11/19 01/11/19 22:48 22:48 WBC RBC Hgb Hct MCV MCH MCHC RDW Std Deviation Plt Count MPV Immature Gran % (Auto) Neut % (Auto) Lymph % (Auto) [place] % (Auto) Eos % (Auto) Baso % (Auto) Immature Gran # (Auto) Neut # (Auto) Lymph # (Auto) [place] # (Auto) Eos # (Auto) Baso # (Auto) Specimen Type Sample Site pH pCO2 pO2 HCO3 Base Excess Oxyhemoglobin ABG O2 Sat (Calculated) ABG O2 Saturation ABG Carboxyhemoglobin ABG Methemoglobin Alexander Test A-a O2 Difference Total Hemoglobin Lactate Blood Gas Modality FiO2 % Sodium Potassium Chloride Carbon Dioxide Anion Gap BUN Creatinine Estimated GFR/1.73 m2 BUN/Creatinine Ratio Glucose POC Glucose Calculated Osmolality Calcium Magnesium Total Bilirubin AST ALT Alkaline Phosphatase Troponin T Total Protein Albumin Globulin Albumin/Globulin Ratio Urine Source CATH Urine Color YELLOW Urine Clarity CLEAR Urine pH 5.0 Ur Specific [place] 1.010 Urine Protein NEGATIVE Urine Ketones NEGATIVE Urine Blood NEGATIVE Urine Nitrite NEGATIVE Urine Bilirubin NEGATIVE Urine Urobilinogen NORMAL Urine Microscopic RBC <10 Urine WBC NEGATIVE Urine Microscopic WBC <10 Urine Glucose NEGATIVE Urine Opiates Screen NONE DETECTED Ur Oxycodone Screen PRESUMPTIVE POSITIVE A Urine Methadone Screen NONE DETECTED U Propoxyphene Qual NONE DETECTED Ur Barbituates Screen NONE DETECTED Ur Tricyclics Screen PRESUMPTIVE POSITIVE A Ur Phencyclidine Scrn NONE DETECTED Ur Amphetamines Screen NONE DETECTED U Methamphetamines Scrn NONE DETECTED U Benzodiazepines Scrn NONE DETECTED Urine Cocaine Screen NONE DETECTED U Cannabinoids Screen NONE DETECTED Orders Category Date Time Status Cardiac Monitoring DIRECTED Care 01/11/19 21:51 Active FSBS/Accucheck Result NOW Care 01/11/19 21:47 Active Misc. NRSG Communication Order DIRECTED Care 01/11/19 21:48 Active CHEST-PORTABLE [RAD] Stat Exams 01/11/19 21:[address] HEAD W/O CONTRAST [CT] Stat Exams 01/11/19 21:50 Taken ABG [RESP] Routine Lab 01/11/19 22:12 Completed BLOOD CULTURE [BLDCUL] Stat Lab 01/11/19 22:18 Ordered CBC WITH ELECTRONIC DIFF [HEME] Stat Lab 01/11/19 22:15 Completed CMP [COMPREHENSIVE METABOLIC PANEL] [CHEM] Stat Lab 01/11/19 22:15 Completed MAGNESIUM [CHEM] Stat Lab 01/11/19 22:15 Completed PT [PROTIME WITH INR] [COAG] Stat Lab 01/12/19 06:17 Uncollected TROPONIN T Stat Lab 01/11/19 22:[address] W/POSS RFLX CULT [URINALYSIS] Stat Lab 01/11/19 22:48 [address] DRUG SCREEN PL Stat Lab 01/11/19 22:48 Completed 0.9% Sodium Chloride Inj [Ns] 1,000 ml Med 01/12/19 05:51 Discontinued .ROUTE As directed 0.9% Sodium Chloride Inj [Ns] 1,000 ml Med 01/11/19 23:26 Active IV 100 mls/hr 0.9% Sodium Chloride Inj [Ns] 1,000 ml Med 01/12/19 01:48 Active IV 100 mls/hr 0.9% Sodium Chloride Inj [Ns] 500 ml Med 01/11/19 23:49 Discontinued IV 999 mls/hr Ketorolac [Toradol] Med 01/12/19 03:13 Discontinued 30 mg .ROUTE .STK-MED ONE Naloxone [Narcan] Med 01/11/19 21:46 Discontinued 1 mg IV NOW ONE EKG [EKG] Stat Ther 01/11/19 21:51 Ordered Result Diagrams: 01/11/19 22:15 01/11/19 22:15 - CONSULTS/PCP/HOSPITALIST Notification #1 *Consult/PCP/Hospitalist*: Dr. Andrews, hospitalist Time Discussed: 23:20 Reason/Comments: recommend admit to hospitalist at [facility], Dr. Sylvester Consult Disposition: Admit #2 Consult: Dr. Sylvester, hospitalist at [facility] Time Discussed: 23:30 Reason/Comments: unable to take patient, no ICU beds at this time, put on admit hold Consult Disposition: Admit #3 Consult: [facility] neurosurgery, Dr. Conde Time Discussed: 23:35 Reason/Comments: Reviewed head CT findings- no significant change from previous CT, no beds Departure - Departure Date of Disposition Decision: 01/12/19 Time of Disposition Decision: 06:18 DIAGNOSIS: Dehydration, Anorexia, ROME (acute kidney injury) Brain cancer Qualifiers: Malignant neoplasm of brain location: unspecified location Qualified Code(s): C 71.9 - Malignant neoplasm of brain, unspecified Disposition: ADMITTED INPATIENT 09 Certified Medical Emergency: Emergent Condition: Stable Referrals and Follow-Ups: Saeed Munoz MD [Primary Care Provider] - - Critical Care Note This patient required my direct & personal management of CC.: No Attestation - Physician/ SUZI Attestation Patient care was provided by Advanced Practice Provider:: No The physician spent face to face time with patient:: Yes Advanced Practice Provider documentation review:: Supervising physician onsite and consulted in the evaluation and care of this patient. The physician did have a face to face encounter with the patient. - NIH Stroke Scale NIH Type: Initial Evaluation Level of Consciousness: 1-Drowsy, but arousable with minimal stimulation LOC Questions (ask month and age): 0-Answers Both Correctly LOC Commands (ask to open & close eyes;make a fist, let go): 0-Obeys Both Corre ctly Best Gaze (horizontal eye movement): 0-Normal Visual (use finger movement, counting or visual threat): 0-No Visual Loss Facial Palsy (show teeth or raise eyebrows & close eyes tght: 0-Symmetrical Movement Motor Function-left arm: 0-Normal Motor Function-left le-Normal Motor Function-right le-Normal Limb Ataxia([id number]-uurp-zobgas, or heel to maynard): 0-No Ataxia Sensory(pin prick to face,arms,trunk,legs-compare side/side): 0-No Ataxia Best Language(name item/read sentence.Ex-Down to Earth): 0-No Aphasia Dysarthria(Pt read words or say words Ex.Mama,Tip-Top,Thanks: 0-Normal Articulation Modified [place] Score Criteria: 0-no symptoms
[2019-01-11 22:24] LABS: BE 1.4 mmoll (-3.0-3.0); BLOOD TYPE ARTERIAL; METHB 1.3 % (0.0-1.5); O2(CT) 15.1 mL/dL (15.0-23.0); PCO2(98.6) 33 mmHg (35-45); PO2(98.6) 107 mmHg (60-100); SAMPLE BLOOD; SAO2 99.5 % (95.0-100.0); THB 11.1 g/dL (11.5-17.4); pH(98.6) 7.48 (7.35-7.45)
[2019-01-11 22:25] LABS: BASO# 0.01 X1000 (0.0-0.2); BASO% 0.1 % (0.0-0.8); EOS# 1.55 X1000 (0.0-0.7); EOS% 16.7 % (0.0-10.0); HEMATOCRIT 34.5 % (42.0-52.0); IMM GRAN# 0.01 X1000 (0.0-0.04); IMM GRAN% 0.1 % (0.0-0.5); LYMPH# 1.18 X1000 (1.2-3.4); LYMPH% 12.7 % (20.5-51.1); MCH 28.1 PG (27-31); MCHC 31.9 g/dL (33-37); MONO# 0.69 X1000 (0.11-0.59); MONO% 7.4 % (1.7-9.3); MPV 10.7 FL (7.4-10.4); NEUT# 5.83 X1000 (1.4-6.5); PLT 199 X1000 (130-400); RBC 3.92 XMIL (4.7-6.1); RDW 16.7 % (11.5-14.5); WBC 9.27 X1000 (4.8-10.8)
[2019-01-11 22:28] LABS: ALLEN TEST YES; MODALITY ROOM AIR
[2019-01-11 22:54] LABS: AGAP 14; ALKALINE PHOSPHATASE 111 U/L (32-122); BUN 48 mg/dL (8-22); CALCIUM 8.6 mg/dL (8.8-10.2); CHLORIDE 97 mmol/L (98-107); COSMO 289; CREATININE 3.4 mg/dL (0.7-1.2); ESTIMATED GFR 19; GLUCOSE 179 mg/dL (70-104); GOT 10 U/L (10-34); GPT < 5 U/L (10-44); POTASSIUM 3.2 mmol/L (3.5-5.1); SODIUM 136 mmol/L (136-145); TCO2 26 mmol/L (25-35); TOTAL PROTEIN 7.2 g/dL (6.3-8.3)
[2019-01-11 22:57] LABS: BILIRUBIN URINE NEGATIVE (NEGATIVE); BLOOD URINE NEGATIVE (NEGATIVE); CLARITY CLEAR (CLEAR); COLOR YELLOW; GLUCOSE URINE NEGATIVE (NEGATIVE); KETONE URINE NEGATIVE (NEGATIVE); LEUKOCYTES URINE NEGATIVE (NEGATIVE); NITRITE URINE NEGATIVE (NEGATIVE); PROTEIN URINE NEGATIVE (NEGATIVE); UROBILINOGEN URINE NORMAL
[2019-01-11 23:05] LABS: URINE RBC <10 /HPF (<10); URINE SOURCE CATH; URINE WBC <10 /HPF (<10)
[2019-01-11 23:07] LABS: UR AMPHETAMINES QUAL NONE DETECTED (NONE DETECT); UR BARBITUATES QUAL NONE DETECTED (NONE DETECT); UR BENZODIAZEPIN QUAL NONE DETECTED (NONE DETECT); UR CANNABINOIDS QUAL NONE DETECTED (NONE DETECT); UR COCAINE QUAL NONE DETECTED (NONE DETECT); UR METHADONE QUAL NONE DETECTED (NONE DETECT); UR METHAMPHETAMINE QUAL NONE DETECTED (NONE DETECT); UR OPIATES QUAL NONE DETECTED (NONE DETECT); UR OXYCODONE QUAL PRESUMPTIVE POSITIVE (NONE DETECT); UR PCP QUAL NONE DETECTED (NONE DETECT); UR PROPOXYPHENE QUAL NONE DETECTED (NONE DETECT); UR TCA QUAL PRESUMPTIVE POSITIVE (NONE DETECT)
[2019-01-11] MEDS ORDERED: NS 1,000 ML IV ONE (23:26)
[2019-01-11] MEDS ORDERED: NS 500 ML IV ONE (23:49)
[2019-01-12] MEDS: NS 1,000 ML IV ONE ×2 (01:48)
[2019-01-12] MEDS ORDERED: TORADOL ONE (03:13)
[2019-01-12] MEDS ORDERED: NS 1,000 ML IV ONE (05:50)
[2019-01-12] MEDS ORDERED: NS 1,000 ML ONE (05:51)
--- NOTE | 2019-01-12 06:01 | Diag Imaging Result Doc PS360 ---
EXAM: CHEST-PORTABLE HISTORY: sob TECHNIQUE: Portable chest single view COMPARISON: 03/08/2018 FINDINGS: The lungs are well expanded. The heart is mildly enlarged. There is a left-sided pacemaker. The vessels are not distended. There are no infiltrates. No effusion identified. IMPRESSION: Mild cardiomegaly. Stable exam. Electronically signed by Christopher Bates 01/12/2019 5:58 AM
[2019-01-12 07:45] LABS: INR 1.13; PROTIME 15.1 Seconds (11.0-16.0)
--- NOTE | 2019-01-12 08:40 | Diag Imaging Result Doc PS360 ---
EXAM: CT HEAD W/O CONTRAST HISTORY: AMS TECHNIQUE: Images were obtained from the skull base to vertex without IV contrast as per standard protocol. COMPARISON: 06/17/2018 1000 FINDINGS: Preliminary interpretation was given by [facility]. There is extensive focal defect consistent with bifrontal and biparietal calvarial and cerebral resection. This has increased from the prior study. There is new mass effect upon the left lateral ventricle with left to right midline shift. No hydrocephalus. There is a 7 mm calcified nodule at the foramen of Darcie unchanged from prior, likely colloid cyst. There is an old right temporal parietal infarct with encephalomalacia similar to prior study. Bilateral occipital encephalomalacia is also unchanged. No acute infarct or hemorrhage is appreciated. Paranasal sinuses and mastoid air cells are clear. IMPRESSION: 1.Interval large area of resection of the left calvarium and cerebral with new mass effect upon the left frontal horn and 6 mm left to right midline shift. 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 No hydrocephalus. 3.Old bilateral infarcts. This exam was performed using automated exposure control, adjustment of mA or kV according to patient size, and/or use of iterative reconstruction technique. Electronically signed by Kassandra Dickson 01/12/2019 8:38 AM
--- NOTE | 2019-01-12 08:53 | ED EKG INTERP ---
This chart was entered by Nahid Wood Scribe, acting as scribe for Kirsten Foster MD. EKG Interpretation - EKG Time of EKG reading by physician:: 08:36 EKG Read and Signed by:: Kirsten Foster EKG Interpretation (*Must complete 3 of following elements*): Abnormal (anterior injury pattern. Acute SD/ STEMI) Rate: 80 Rhythm: wide QRS QRS: RBB, PVC's (occassional) Prior EKG Comparison: changes noted (Comparison from 06/17/18 LAD Widened, PVCs, RBBB with LVH) Attestation - Physician/ SUZI Attestation Patient care was provided by Advanced Practice Provider:: No The physician spent face to face time with patient:: Yes Advanced Practice Provider documentation review:: Supervising physician onsite and consulted in the evaluation and care of this patient. The physician did have a face to face encounter with the patient. This chart was documented by the indicated scribe, (Nahid Wood Scribe) and accurately reflects the services I performed and decisions made by me, Kirsten Foster MD, as attested by the provider's signature.
[2019-01-12] MEDS ORDERED: POTASSIUM CHLORIDE 20 MEQ in LR 1,000 ML IV SCH ×2 (09:00→10:00)
--- NOTE | 2019-01-12 09:04 | EKG Report ---
Test Performed on : 01/12/2019 08:36:51 AM Test Reason : pain Blood Pressure : / mmHG Vent. Rate : 080 BPM Atrial Rate : 017 BPM P-R Int : 000 ms QRS Dur : 172 ms QT Int : 544 ms P-R-T Axes : 000 244 055 degrees QTc Int : 627 ms Wide QRS rhythm. with occasional premature ventricular complexes. Right bundle branch block Possible Lateral infarct , age undetermined Anterior injury pattern ACUTE MD / STEMI Abnormal ECG When compared with ECG of 17-JUN-2018 11:48, No significant change was found Unconfirmed Result
[2019-01-12 11:47] LABS: AGAP 13; ALBUMIN 3.4 g/dL (3.5-5.0); ALKALINE PHOSPHATASE 98 U/L (32-122); BUN 46 mg/dL (8-22); CALCIUM 8.1 mg/dL (8.8-10.2); CHLORIDE 99 mmol/L (98-107); COSMO 285; CREATININE 3.3 mg/dL (0.7-1.2); ESTIMATED GFR 19; GLUCOSE 82 mg/dL (70-104); GOT 8 U/L (10-34); GPT < 5 U/L (10-44); POTASSIUM 3.1 mmol/L (3.5-5.1); SODIUM 137 mmol/L (136-145); TCO2 25 mmol/L (25-35); TOTAL PROTEIN 6.3 g/dL (6.3-8.3)
[2019-01-12] MEDS ORDERED: SODIUM CHLORIDE 0.9% INJ SCH (14:15)
[2019-01-12] MEDS ORDERED: PROTONIX IV SCH (14:15)
--- NOTE | 2019-01-12 14:22 | HISTORY AND PHYSICAL ---
CHIEF COMPLAINT: Nausea, vomiting and no appetite for 4 days. HISTORY OF PRESENT ILLNESS: This is a 58-year-old gentleman with a history of brain cancer who underwent surgery of brain cancer status post surgery 2 months ago, severe nonischemic cardiomyopathy with EF of 10-15%, status post ICD placement, coronary artery disease, atrial fibrillation, hypertension, diabetes mellitus. He presents to the emergency room with 4 days of nausea and vomiting. He did state that he attempted to drink liquids, although he could not keep any of these down. On arrival, he was noted to have blood pressure of 80/59, with a heart rate in the 80s, as well as a creatinine of 3.4, looks like with his baseline being 1.6. He was given IV hydration. Blood pressures have increased to 118/86. He states he feels much better and he is being admitted for further evaluation and treatment. PAST MEDICAL HISTORY: 1. Brain cancer status post surgery two months ago. 2. Nonischemic cardiomyopathy with EF of 10-15%. 3. ICD, biventricular pacemaker placement. 4. Coronary artery disease. 5. Atrial fibrillation. 6. Hypertension. 7. Diabetes mellitus. 8. Gastroesophageal reflux disease. PAST SURGICAL HISTORY: Brain surgery, cholecystectomy. SOCIAL HISTORY: He denies alcohol, tobacco or illicit drug use. ALLERGIES: Dilaudid, with unknown reaction. HOME MEDICATIONS: A list will be obtained by the nursing staff. Once verified, will review and restart as is appropriate. REVIEW OF SYSTEMS: Discussed with the patient with pertinent positives stated in the HPI. He denied any chest pain, palpitations, any syncope, any fevers or chills, night sweats, any shortness of breath, cough, black or bloody vomitus or stools, any hematuria, dysuria, frequency, urgency. PHYSICAL EXAMINATION: GENERAL: This is a 58-year-old gentleman who is lying in the bed in no distress. VITAL SIGNS: Blood pressure is 107/78, with a heart rate of 84, respirations are 18, temperature is 97.3, with room air sats 98-100%. EYES: Pupils are equal, round, react to light. EOMs are intact. Sclerae anicteric. HEENT: Head is normocephalic, atraumatic. Mucous membranes are dry. NECK: Supple, with trachea midline. CARDIOVASCULAR: Regular rate and rhythm. S1 and S2 are appreciated. He has no lower extremity edema, with peripheral pulses palpable x 4 extremities. PULMONARY: Breath sounds are clear with no increased work of breathing noted. GASTROINTESTINAL: Abdomen is soft, nontender, nondistended, with bowel sounds in all 4 quadrants. NEUROLOGIC: He is alert oriented x 3. SKIN: Warm and dry with poor turgor. He does have a dressing to the top of his head that is dry and intact. ASSESSMENT AND PLAN: 1. Dehydration secondary to nausea and vomiting. 2. Acute kidney injury secondary to #1. 3. Nonischemic cardiomyopathy, with EF of 10-15%, status post ICD placement. 4. Coronary artery disease. 5. Hypertension. 6. Diabetes mellitus. 7. Recent brain surgery. PLAN: The patient will be admitted to the Medical/Surgical floor, placed on telemetry. We will consult wound therapy for dressings to his head. We will continue with IV hydration, giving IV antiemetics as needed. We will identify his home medications and continue as appropriate. He has had sips of clear liquids and tolerated this well. Will advance to sips of full liquids. He has been instructed that he is to stop eating if the nausea or vomiting return. fINGERSTICK bg, ssi It was discussed with the patient code status. The patient did state that he wanted to be a DNR level 1, not wanting to be intubated, to have CPR emergency medications. Further treatments pending hospital course. Dictated by CHAYITO Carr for Han Andrews MD This chart was documented by, CHAYITO Carr and accurately reflects the services performed, treatment plan and medical decisions as attested by the providers signature Han Andrews MD. cc: CHAYITO Carr MD [facility]
[2019-01-12] MEDS: PROTONIX IV SCH (15:32)
[2019-01-12] MEDS: SODIUM CHLORIDE 0.9% INJ SCH (15:32)
--- NOTE | 2019-01-12 16:30 | Extremity Venous Study ---
EXAM: Venous U/S Bilateral Legs HISTORY: dvt ris TECHNIQUE: Carranza scale, color Doppler, and duplex evaluation was performed. COMPARISON: 03/09/2018 FINDINGS: The deep veins of the bilateral lower extremities demonstrate appropriate compressibility and augmentation. No intraluminal thrombus is visualized. There is no evidence for DVT. The superficial veins appear patent. IMPRESSION: No evidence for deep venous thrombosis bilateral lower extremities. Electronically signed by Kassandra Dickson 01/12/2019 4:28 PM
[2019-01-12] MEDS: ZOFRAN IV PRN (18:45)
[2019-01-12] MEDS: SEROQUEL PO SCH (20:31)
[2019-01-12] MEDS: PERCOCET-10 PO PRN (20:32)
[2019-01-12] MEDS: ZANAFLEX PO PRN (22:14)
--- NOTE | 2019-01-13 00:44 | HISTORY AND PHYSICAL ---
ADDENDUM Patient presented to the hospital with dehydration. Two months ago he had brain surgery at [facility]. We will admit to the hospital, IV fluids, and follow. cc: Han Andrews MD
[2019-01-13] MEDS: PROTONIX IV SCH ×2 (02:08→14:50)
[2019-01-13 06:56] LABS: HEMATOCRIT 30.9 % (42.0-52.0); HEMOGLOBIN 9.6 g/dL (14.0-18.0); MCH 27.4 PG (27-31); MCHC 31.1 g/dL (33-37); MPV 11.7 FL (7.4-10.4); RBC 3.51 XMIL (4.7-6.1); RDW 16.4 % (11.5-14.5); WBC 8.6 X1000 (4.8-10.8)
[2019-01-13 07:19] LABS: AGAP 13; ALBUMIN 3.2 g/dL (3.5-5.0); ALKALINE PHOSPHATASE 100 U/L (32-122); BUN 44 mg/dL (8-22); CALCIUM 8.5 mg/dL (8.8-10.2); CHLORIDE 102 mmol/L (98-107); COSMO 291; CREATININE 2.7 mg/dL (0.7-1.2); ESTIMATED GFR 24; GLUCOSE 133 mg/dL (70-104); GOT 10 U/L (10-34); GPT < 5 U/L (10-44); POTASSIUM 3.1 mmol/L (3.5-5.1); SODIUM 139 mmol/L (136-145); TCO2 24 mmol/L (25-35); TOTAL PROTEIN 6.4 g/dL (6.3-8.3)
[2019-01-13] MEDS ORDERED: ZAROXOLYN PO SCH (09:00)
[2019-01-13] MEDS: PERCOCET-10 PO PRN ×4 (09:43→23:15)
[2019-01-13] MEDS: ISORDIL PO SCH (09:44)
[2019-01-13] MEDS: ZOFRAN IV PRN ×2 (09:55)
[2019-01-13] MEDS ORDERED: NS 1,000 ML IV SCH (14:15)
[2019-01-13] MEDS: SODIUM CHLORIDE 0.9% INJ SCH (14:50)
[2019-01-13] MEDS: SEROQUEL PO SCH (20:07)
--- NOTE | 2019-01-13 23:14 | PROGRESS NOTE ---
DATE: 01/13/2019 SUBJECTIVE: The patient has no new real complaints. He states he still has occasional shortness of breath, still has occasional nausea, but notes this is improving and would like to go home. OBJECTIVE: Temperature 98, pulse 82, respiratory rate 19, BP 141/97 to 94/60. General: The patient is awake, currently in no distress. Pleasant to talk with. HEENT: Normocephalic. Neck supple. CV: Regular rate. Chest with rhonchi throughout. No current crackles, no wheezing. Abdomen is soft, nondistended. Extremities: Moves all extremities. ASSESSMENT: 1. Volume depletion. 2. [id number] renal failure. Creatinine is 2.7 with baseline around 1.6. 3. Nonischemic cardiomyopathy, with ejection fraction 10% to 15%. 4. Hypertension. 5. Diabetes. 6. Recent brain surgery. PLAN: We will continue the patient in the hospital. Restart his IV fluids, give him a small bolus. Gently rehydrate, given that he has an ejection fraction of 10% to 15%, and will follow. cc: Han Andrews MD
[2019-01-14] MEDS: ZANAFLEX PO PRN (01:28)
[2019-01-14] MEDS: PROTONIX IV SCH (02:24)
[2019-01-14 06:18] LABS: HEMATOCRIT 29.8 % (42.0-52.0); HEMOGLOBIN 9.3 g/dL (14.0-18.0); MCH 27.5 PG (27-31); MCHC 31.2 g/dL (33-37); MCV 88.2 FL (81-99); MPV 11.3 FL (7.4-10.4); RBC 3.38 XMIL (4.7-6.1); RDW 16.1 % (11.5-14.5); WBC 8.97 X1000 (4.8-10.8)
[2019-01-14 06:54] LABS: AGAP 13; ALBUMIN 3.2 g/dL (3.5-5.0); ALKALINE PHOSPHATASE 93 U/L (32-122); BUN 31 mg/dL (8-22); CALCIUM 8.3 mg/dL (8.8-10.2); CHLORIDE 103 mmol/L (98-107); COSMO 288; CREATININE 2.1 mg/dL (0.7-1.2); ESTIMATED GFR 33; GLUCOSE 95 mg/dL (70-104); GOT 8 U/L (10-34); GPT < 5 U/L (10-44); POTASSIUM 2.9 mmol/L (3.5-5.1); SODIUM 141 mmol/L (136-145); TCO2 25 mmol/L (25-35); TOTAL PROTEIN 6.2 g/dL (6.3-8.3)
[2019-01-14] MEDS ORDERED: KLOR-CON PO ONE (07:38)
[2019-01-14] MEDS: ISORDIL PO SCH (09:01)
[2019-01-14 11:25] VITALS: BP 108/75
[2019-01-14] MEDS: PERCOCET-10 PO PRN (13:40)
--- NOTE | 2019-01-15 07:04 | DISCHARGE SUMMARY ---
ADMISSION DATE: 01/12/2019 DISCHARGE DATE: 01/14/2019 PRIMARY CARE PHYSICIAN: Dr. Saeed Herrera. DISCHARGE DIAGNOSES: 1. Dehydration secondary to nausea, vomiting, resolved. 2. Acute kidney injury secondary to #1, resolved. 3. Chronic kidney disease with a baseline creatinine of 1.9 to 2.1. 4. Nonischemic cardiomyopathy with an ejection fraction of 10% to 15%, status post implantable cardioverter defibrillator placement. 5. Coronary artery disease. 6. Diabetes mellitus. 7. Recent brain surgery. DIAGNOSTICS: 1. Chest x-ray revealed mild cardiomegaly. 2. CT of the head revealed interval large area of resection of the left calvarium and cerebral, with new mass effect upon the left frontal horn, and 6 mm left to right midline shift. 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 No hydrocephalus. 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 3. Bilateral lower extremity Doppler revealed no evidence for DVT in bilateral lower extremities. HOSPITAL COURSE: Mr. Cottrell presented to the emergency room after having nausea, vomiting, and anorexia for 4 days. He was found to be dehydrated with blood pressures in the 80s/50s for which he received IV hydration as well as antiemetics. He has had no further nausea or vomiting. Blood pressures have remained in the 100 to 130/60s to 70 range. He has remained afebrile. Admission creatinine was 3.4 with a BUN of 48. Today, he is 2.1 with a BUN of 31, being at his recent creatinine with a baseline of 1.6 to 2. He has tolerated a regular diet and, thankfully, is ready to be discharged. DISCHARGE PHYSICAL EXAMINATION: Vital signs: Blood pressure is 108/75 with a heart rate of 83, respirations 16, temperature 97.8 degrees, with O2 saturation 98% to 100% on room air. Cardiovascular: Regular rate and rhythm. S1 and S2 appreciated. Pulmonary: Breath sounds are clear with no increased work of breathing noted. Gastrointestinal: Abdomen is soft, nontender, nondistended. Bowel sounds in all 4 quadrants. Neurologic: He is alert and oriented x3. DISCHARGE MEDICATIONS: Zanaflex 4 mg p.o. t.i.d. p.r.n., Seroquel 100 mg p.o. at bedtime, metolazone 2.5 mg p.o. daily, Isordil 30 mg p.o. daily FOLLOWUP: He needs to follow up with Dr. Herrera, his primary care physician, in the next week to 2 weeks. He needs to call Wednesday to schedule an appointment. DISCHARGE INSTRUCTIONS: He has been instructed to call to be seen sooner or return to the ER for any syncope, dizziness, chest pain, palpitations, any recurring nausea, vomiting, diarrhea, constipation, any black or bloody vomitus or stools, hematuria, dysuria, frequency, urgency, or any questions or concerns that he may have. He is being discharged home in stable condition with family members. TIME SPENT: This is a greater than 30 minute discharge. Dictated by CHAYITO Carr for Han Andrews MD This chart was documented by, CHAYITO Carr and accurately reflects the services performed, treatment plan and medical decisions as attested by the providers signature Han Andrews MD. cc: CHAYITO Carr MD [facility]
--- NOTE | 2019-01-15 08:55 | DISCHARGE SUMMARY ---
ADMISSION DATE: 01/12/2019 DISCHARGE DATE: 01/14/2019 ADDENDUM: Patient seen and examined by myself. Full note dictated and discussed with nurse practitioner. Patient on discharge says he is feeling much better. He states he is ready to go home. His acute on chronic renal failure has improved, although he is not quite back to his baseline, currently 2.1. Creatinine was baseline around 1.6. His hypokalemia was easily replaced. The patient notes that he is drinking much better and states that he does not want to stay in the hospital any longer. cc: Han Andrews MD
== END 2019-01-14 14:17 | disposition home health service (06) | DRG 683 ==
LOC: P.ED 21:34 → SUATTDRO 01-12 08:30 → P.EDIPHOLD 01-12 08:30 → 3N 01-12 10:57 → P.MEDSURG 01-12 12:09
PROVIDERS: ATTEND Family Medicine
CPT/HCPCS: 36415; 70450; 71010; 71045; 80053; 80104; 80301; 80305; 81001; 82805; 82948; 83735; 84484; 85025; 85027; 85610; 87040; 93005; 93970; 96361; 96365; 96366; 96375; 99285; A9270; C9113; G0431; G0434; G0477; J1885; J2310; J2405; J3480; J7030; J7120; S0164; XXXXX